=== PATIENT | female | born 1980 ===

== ENCOUNTER 2019-02-17 17:54 | Inpatient (IN) | payer OTHER ==
[2019-02-17 18:44] LABS: Hematocrit 39.2 % (30.3-42.9); Hemoglobin 13.2 gm/dl (10.1-14.3); Mean Corpuscular HGB Conc 34 % (30-34); Mean Corpuscular Volume 95 fl (79-97); Platelet Count 332 K/mm3 (140-440); Red Blood Count 4.12 M/mm3 (3.65-5.03); Red Cell Distribution Width 13.9 % (13.2-15.2)
[2019-02-17] MEDS ORDERED: TERBUTALINE 1 MG/1 ML INJ IVP PRN (19:10)
[2019-02-17] MEDS ORDERED: ePHEDrine SULFATE 50 MG/1 ML INJ IV PRN (19:10)
[2019-02-17] MEDS ORDERED: LIDOCAINE (2%) 20 MG/1 ML VIAL 20 ML MDV INFILTRATI ONE (19:10)
[2019-02-17] MEDS ORDERED: TERBUTALINE 1 MG/1 ML INJ SUB-Q PRN (19:10)
[2019-02-17] MEDS ORDERED: BUTORPHANOL 2 MG/1 ML INJ IV PRN (19:10)
[2019-02-17] MEDS ORDERED: MINERAL OIL 30 ML ORAL LIQD PO PRN (19:10)
--- NOTE | 2019-02-17 19:13 | History and Physical Report ---
History of Present Illness Date of examination: 02/17/19 Date of admission: 02/17/2019 Chief complaint: Leaking of fluid History of present illness: 38yo at 37+5/7 weeks by LNMP consistent with third trimester (YOGI 03/05/19)US presents with discharge on her pad this morning. She is a patient of [facility] and was seen in the clinic today. She was reported to have +ve pooling and +ve nitrazine. She was sent for direct admission for evaluation of possible SROM and possible delivery. She reports no contractions, no vaginal bleeding and good movement. On initial exam, patient had a completely dry peripad and no pooling. There was no amniotic fluid noted on my glove during her pelvic exam. There was a scant amount of blood noted on my glove after her cervical exam. 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 smear, chlamydia, gonorrhea, trichomonas Family/Genetic History: congenital heart defect Social history: - Obstetrical History Expected Date of Delivery: 03/05/19 Actual Gestation: 37 Week(s) 5 Day(s) : 2 Para: 1 Hx # Term Pregnancies: 1 Number of Living Children: 1 #1 Infant Gender: Female year: 2[age][birth year] Birthweight: 2.948 kg Method of Delivery: Gestational age at delivery: 40 Complications: hematoma Medications and Allergies Allergies Allergy/AdvReac Type Severity Reaction Status Date / Time No Known Allergies Allergy Unverified 02/17/19 18:28 Active Meds: Active Medications Ephedrine Sulfate (Ephedrine Sulfate) 10 mg IV Q2M PRN PRN Reason: Hypotension Oxytocin/Sodium Chloride (Pitocin/Ns 20 Unit/1000ml Drip) 20 units in 1,000 mls @ 125 mls/hr IV DIRECT CARLY Oxytocin/Sodium Chloride (Pitocin/Ns 30 Unit/500ml) 30 units in 500 mls @ 1 mls/hr IV TITR CARLY; Protocol Lidocaine (Xylocaine 2%) 20 ml INFILTRATI ONCE ONE Stop: 02/17/19 19:11 Mineral Oil (Mineral Oil) 30 ml PO QHS PRN PRN Reason: Constipation Terbutaline Sulfate (Brethine) 0.25 mg SUB-Q ONCE PRN PRN Reason: Hyperstimulation/Hypertonicity Terbutaline Sulfate (Brethine) 0.25 mg IVP ONCE PRN PRN Reason: Hyperstimulation/Hypertonicity Review of Systems All systems: negative - Vital Signs Vital signs: Vital Signs Temp 96.9 F L 02/17/19 18:15 Temp Pulse Resp BP Pulse Ox 96.9 F L 75 116/71 02/17/19 18:15 02/17/19 19:08 02/17/19 19:08 - Physical Exam Breasts: Positive: deferred Cardiovascular: Regular rate Lungs: Positive: Clear to auscultation Abdomen: Positive: normal appearance Genitourinary (Female): Positive: normal external genitalia Vulva: right: normal Vagina: Positive: normal moisture Uterus: Positive: normal size (FH37cm) Anus/Rectum: Positive: normal perianal skin Extremities: Positive: normal Deep Tendon Reflex Grade: Normal +2 - Obstetrical FHR: category 1 FHR comments: 150 baseline, moderate variability, +ve accelerations Uterine Contraction Monitor Mode: External Cervical Dilatation: 0 Cervical Effacement Percentage: 20 station: -2 Uterine Contraction Pattern: Irregular Results Result Diagrams: 02/17/19 18:19 All other labs normal. Assessment and Plan IUP at 37+5/7 weeks, not in labor Questionable SROM Previous c/sectionx1 AMA Daughter with a heart defect GBS negative Plan: Patient stable, not in labor status reassuring Plan for BPP/MARTHA nitrazine test in AM: possible false positive in office confirm SROM prior to elective c/section [place] [facility]
[2019-02-17] MEDS ORDERED: OXYTOCIN 20 UNIT/1000ML DRIP 20 UNITS/1,000 ML BAG IV SCH (20:00)
[2019-02-17] MEDS ORDERED: OXYTOCIN DRIP 30 UNITS/500 ML BAG IV SCH ×2 (20:00)
[2019-02-17] MEDS ORDERED: LACTATED RINGERS 1,000 ML ONE (22:41)
[2019-02-17] MEDS ORDERED: fentaNYL 100 MCG/2 ML INJ IV PRN (23:19)
[2019-02-18] MEDS ORDERED: BICITRA ORAL LIQD 30ML ONE (00:42)
[2019-02-18] MEDS ORDERED: FAMOTIDINE 20 MG/2 ML INJ IV ONE ×2 (00:43→01:00)
[2019-02-18] MEDS ORDERED: ceFAZolin/Water 2 GM/20 ML 2 GM/20 ML SYRINGE IV ONE ×2 (00:43→01:00)
[2019-02-18] MEDS ORDERED: METOCLOPRAMIDE 10 MG/2 ML INJ ONE (00:43)
--- NOTE | 2019-02-18 00:53 | Anesthesia Day of Surgery ---
Anesthesia Day of Surgery - Day of Surgery Patient Examined: Yes Patient H&P Reviewed: Yes Patient is NPO: No
--- NOTE | 2019-02-18 00:53 | Anesthesia Consultation ---
Anesthesia Consult and Med Hx Date of service: 02/18/19 - Airway Anesthetic Teeth Evaluation: Good ROM Head & Neck: Adequate Mental/Hyoid Distance: Adequate Mallampati Class: Class II Intubation Access Assessment: Good - Pulmonary Exam CTA: Yes - Pre-Operative Health Status ASA Pre-Surgery Classification: ASA2 Proposed Anesthetic Plan: Spinal - Pulmonary Hx Asthma: No COPD: No Hx Pneumonia: No - Endocrine Hx End Stage Renal Disease: No
[2019-02-18] MEDS ORDERED: METOCLOPRAMIDE 10 MG/2 ML INJ IV ONE (01:00)
[2019-02-18] MEDS ORDERED: BICITRA ORAL LIQD 30ML PO ONE (01:00)
--- NOTE | 2019-02-18 01:11 | Progress Note ---
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 FHT 140 baseline, moderate variability, +ve accelerations Plan for vaginal delivery Raul Zamora MD Objective - Vital Signs Vital Signs: Vital Signs - 12hr 02/17/19 02/17/19 02/17/19 18:15 18:23 19:08 Temperature 96.9 F L Pulse Rate 91 H 75 Blood Pressure 113/84 116/71 O2 Sat by Pulse Oximetry 02/17/19 02/17/19 02/18/19 19:10 23:30 00:00 Temperature 98.9 F 98.3 F Pulse Rate 74 Blood Pressure 121/75 O2 Sat by Pulse Oximetry 02/18/19 02/18/19 02/18/19 00:33 00:38 00:43 Temperature Pulse Rate 86 83 Blood Pressure O2 Sat by Pulse 99 98 98 Oximetry 02/18/19 02/18/19 02/18/19 00:48 00:53 00:58 Temperature Pulse Rate 86 106 H 102 H Blood Pressure O2 Sat by Pulse 98 99 98 Oximetry 02/18/19 01:03 Temperature Pulse Rate 89 Blood Pressure O2 Sat by Pulse 100 Oximetry - Labs Labs: Laboratory Results - last 24 hr 02/17/19 02/17/19 02/17/19 18:19 18:19 18:19 WBC 8.0 RBC 4.12 Hgb 13.2 Hct 39.2 MCV 95 MCH 32 MCHC 34 RDW 13.9 Plt Count 332 Syphilis IgG Antibody Non-reactive Blood Type O POSITIVE Antibody Screen Negative
--- NOTE | 2019-02-18 01:35 | Progress Note ---
Subjective - Subjective Date of service: 02/18/19 Principal diagnosis: SROM at 37+5/7 weeks Interval history: Patient declines to push verbalized desire for ERCS Consents signed and on chart Anesthesia notified to OR for c/section Maternal/ status reassuring at bedside Raul Zamora MD Objective - Vital Signs Vital Signs: Vital Signs - 12hr 02/17/19 02/17/19 02/17/19 18:15 18:23 19:08 Temperature 96.9 F L Pulse Rate 91 H 75 Blood Pressure 113/84 116/71 O2 Sat by Pulse Oximetry 02/17/19 02/17/19 02/18/19 19:10 23:30 00:00 Temperature 98.9 F 98.3 F Pulse Rate 74 Blood Pressure 121/75 O2 Sat by Pulse Oximetry 02/18/19 02/18/19 02/18/19 00:33 00:38 00:43 Temperature Pulse Rate 86 83 Blood Pressure O2 Sat by Pulse 99 98 98 Oximetry 02/18/19 02/18/19 02/18/19 00:48 00:53 00:58 Temperature Pulse Rate 86 106 H 102 H Blood Pressure O2 Sat by Pulse 98 99 98 Oximetry 02/18/19 02/18/19 02/18/19 01:03 01:08 01:13 Temperature Pulse Rate 89 90 91 H Blood Pressure O2 Sat by Pulse 100 96 95 Oximetry 02/18/19 02/18/19 02/18/19 01:18 01:20 01:23 Temperature Pulse Rate 106 H 86 107 H Blood Pressure O2 Sat by Pulse 97 94 95 Oximetry 02/18/19 01:28 Temperature Pulse Rate 94 H Blood Pressure O2 Sat by Pulse 96 Oximetry - Labs Labs: Laboratory Results - last 24 hr 02/17/19 02/17/19 02/17/19 18:19 18:19 18:19 WBC 8.0 RBC 4.12 Hgb 13.2 Hct 39.2 MCV 95 MCH 32 MCHC 34 RDW 13.9 Plt Count 332 Syphilis IgG Antibody Non-reactive Blood Type O POSITIVE Antibody Screen Negative
[2019-02-18] MEDS ORDERED: DEXMEDETOMIDINE 200 MCG/2 ML VIAL IV ONE (01:37)
[2019-02-18] MEDS ORDERED: ONDANSETRON 4 MG/2 ML INJ ONE (01:38)
[2019-02-18] MEDS ORDERED: ePHEDrine SULFATE 50 MG/1 ML INJ ONE (02:30)
[2019-02-18] MEDS ORDERED: HETASTARCH 6% 500 ML IV ONE (02:39)
[2019-02-18] MEDS ORDERED: MIDAZOLAM 2 MG/2 ML INJ ONE (02:41)
[2019-02-18] MEDS ORDERED: PHENYLEPHRINE/NS 1,000 MCG/10 ML SYRINGE (OR USE) IV ONE (02:41)
[2019-02-18] MEDS ORDERED: HYDROmorphone 1 MG/1 ML INJ ONE (02:43)
[2019-02-18] MEDS ORDERED: OXYTOCIN 10 UNIT/1 ML INJ ONE (03:41)
[2019-02-18] MEDS ORDERED: MAGNESIUM HYDROXIDE (MOM) ORAL LIQD UDC PO PRN (04:40)
[2019-02-18] MEDS ORDERED: PROMETHAZINE 25 MG RECT SUPP PR PRN (04:40)
[2019-02-18] MEDS ORDERED: SIMETHICONE 80 MG CHEW TAB PO PRN (04:40)
[2019-02-18] MEDS ORDERED: WITCH HAZEL/ GLYCERIN PAD TP PRN (04:40)
[2019-02-18] MEDS ORDERED: LANOLIN/ZINC/DIMETHICONE (LANSINOH) 7 GM TP PRN (04:40)
[2019-02-18] MEDS ORDERED: NALOXONE 0.4 MG/1 ML INJ IV PRN (04:40)
[2019-02-18] MEDS ORDERED: ACETAMINOPHEN 650 MG RECT SUPP PR PRN (04:40)
[2019-02-18] MEDS ORDERED: ONDANSETRON 4 MG/2 ML INJ IV PRN (04:40)
[2019-02-18] MEDS ORDERED: MORPHINE 4 MG/1 ML INJ IV PRN (04:40)
[2019-02-18] MEDS ORDERED: OXYTOCIN 20 UNIT/1000ML DRIP 20 UNITS/1,000 ML BAG IV SCH (05:00)
[2019-02-18] MEDS ORDERED: SODIUM CHLORIDE 0.9% 1000 ML 1,000 ML ONE (05:03)
--- NOTE | 2019-02-18 06:15 | Procedure Note ---
OB Delivery Note - Delivery Date of Delivery: 02/18/19 Surgeon: SILVINO ESPINAL Estimated blood loss: other (1500ml) - Section Preop diagnosis: repeat Postop diagnosis: other (Repeat low transverse section via pfannenstiel incision, Incidental cystotomy, acute blood loss~1500ml) section procedure: repeat low transverse, other (repair of incidental cystotomy) Disposition: PACU Complications: bladder injury, transfusion Narrative: Preoperative diagnosis: IUP at 37+5/7 weeks,SROM,Previous Sectionx1 declines TOLAC Postoperative diagnosis: Same, incidental cystotomy, Pelvic adhesions, acute blood loss Procedure: Repeat Low Transverse section via Pfannenstiel incision, Repair of incidental cystotomy Surgeon: Dr Silvino Espinal Assist: Scrub Anesthesia: Spinal Findings: viable female, 8,9; weight 3044gms Normal uterus, tubes and ovaries bilaterally. ~3cm right cystotomy noted at the dome of the bladder Complications: Incidental Cystotomy, Pelvic Adhesions, no response from Intraoperative Urology consult Drains: Noe to gravity EBL: 1500mL IV Fluids: 2500ml, 2 units PRBC's Urine Output: intraoperative cystotomy with no urine output until repair completed Procedure: Patient noted to be complete and zero station. She declines to push and asked for a section. Patient gave informed consent in OB room 2009. All questions and concerns addressed. R/B/C reviewed. She was taken to the OR where excellent spinal anesthesia was given. She was placed in the dorsal supine position with a leftward tilt. She was prepped and draped in a sterile fashion. A time out was verified. An Dolores clamp was used to assure adequate analgesia. A Pfannenstiel skin incision was made, taken down through the underlying fascia sharply and extended laterally with curved Muse scissors. The superior and inferior aspect of the fascial incision was grasped with Boo clamps and the rectus muscles dissected off sharply. The abdomen was entered sharply in the midline and extended laterally and inferiorly sharply with good visualization of the underlying structures. Pelvic adhesions were noted and taken down sharply. The vesicouterine peritoneum was noted to be adherent to the fundal portion of the uterus and was taken down sharply with Metzenbaum scissors. A bladder blade was inserted. The uterine incision was made sharply with a scalpel, taken down to the amnion and extended inferiorly and superiorly bluntly. The bladder blade removed. Baby delivered atraumatically in cephalic presentation, loose nuchal cord reduced at delivery. Spontaneous cry at delivery.The cord was clamped and cut and baby handed to waiting NICU staff. An intact placenta with three vessel cord delivered manually. The uterus cleared of all clots and debris. The uterus was exteriorized and the uterine incision closed with 3 layers of 0-Vicryl. At this time there was lisa blood noted in the noe. The bladder was backfilled with 60cc sterile milk infused into the noe and a ~3cm right cystotomy noted on the right lateral aspect at the dome of the bladder. Urology was paged with no response. Visualizing clear margins the incidental cystotomy was repaired in two layers with 3-0 silk. The first layer of repair was a sunning layer of 3-0 silk, the second layer an imbricating layer of 3-0 silk. At the completion of the procedure the integrity of the cystotomy was noted to be adequate with 60cc infusion of sterile milk into the bladder through the noe catheter with no intraperitoneal spill or leaking noted. Due to the extensive repair and revision to the uterus and bladder there was extensive intraoperative bleeding noted and two units PRBC's were called for STAT. Patient remained hemodynamically stable throughout the procedure. The abdomen was irrigated with warm normal saline and the uterus placed back in the abdomen. A second look at the uterine incision assured excellent hemostasis. A procoagulant was placed on the uterine incision. The peritoneum closed with 3- 0 vicryl. The rectus muscles approximated with 3-0 vicryl with good hemostasis. The fascia closed with 0-Vicryl in the usual fashion, and the underlying structures closed with interrupted suture of O-Vicryl. The skin closed with angela and a pressure dressing applied. Mom and baby stable to . Patient transfused two units PRBC's in PACU. Plan for serial H/H Q6 hours post-transfusion. Patient notified in PACU of acute blood loss and inci dental cystotomy with the Outboard Motor Tester line. We discussed plan of care to continue noe for at least 7 days. Plan for urology consult. She was notified of acute blood loss and need for transfusion. She acknowledges understanding. Patient hemodynamically stable in PACU. 100ml urine output noted in the noe in PACU. EBL 1500ml. All sponge and needle counts correctx3. [place] [facility] - Infant A at 1 minute: 8 at 5 minutes: 9 Infant Gender: Female (3044gms)
[2019-02-18] MEDS ORDERED: FUROSEMIDE 20 MG/2 ML INJ IV ONE (06:53)
[2019-02-18 06:55] LABS: Hematocrit 29.5 % (30.3-42.9); Hemoglobin 10.1 gm/dl (10.1-14.3); Mean Corpuscular HGB Conc 34 % (30-34); Mean Corpuscular Volume 94 fl (79-97); Platelet Count 191 K/mm3 (140-440); Red Blood Count 3.15 M/mm3 (3.65-5.03); Red Cell Distribution Width 14.4 % (13.2-15.2)
[2019-02-18] MEDS: MORPHINE 2 MG/1 ML INJ IV PRN ×2 (08:09→15:16)
[2019-02-18] MEDS: LACTATED RINGERS 1,000 ML IV SCH ×2 (08:17→19:26)
--- NOTE | 2019-02-18 09:53 | Post Anesthesia Evaluation ---
- Post Anesthesia Evaluation Patient Participated: Yes Airway Patent: Yes Stable Respiratory Function: Yes Nausea/Vomiting: No Temp > 96.8F: Yes Pain Manageable: Yes Adequeate Hydration: Yes (1500 EBL, PRBC started in OR.) Anesthesia Complications: No Block Receding Appropriately: Yes Patient on Ventilator: No
[2019-02-18] MEDS: oxyCODONE /ACETAMINOPHEN 5-325MG TAB PO PRN ×2 (10:10→20:48)
[2019-02-18 13:09] LABS: Hematocrit 28.7 % (30.3-42.9); Hemoglobin 9.8 gm/dl (10.1-14.3)
[2019-02-18] MEDS ORDERED: KETOROLAC 30 MG/1 ML INJ ONE (15:00)
[2019-02-18 19:08] LABS: Hemoglobin 9.4 gm/dl (10.1-14.3)
[2019-02-19] MEDS: IBUPROFEN 800 MG TAB PO PRN ×2 (00:12→09:37)
[2019-02-19 03:13] LABS: Hematocrit 27.5 % (30.3-42.9); Hemoglobin 9.4 gm/dl (10.1-14.3)
[2019-02-19] MEDS: oxyCODONE /ACETAMINOPHEN 5-325MG TAB PO PRN ×3 (06:26→23:59)
--- NOTE | 2019-02-19 08:00 | Progress Note ---
Assessment and Plan POD#1: repeat c/section with incidental cystotomy, acute blood loss anemia sp transfusion 2 units RBCs doing well adequate urine output, awaiting urology consult CMP pending H/H stable advance diet to regular Encourage ambulation Maternal well being stable at bedside Raul Zamora MD Subjective - Subjective Date of service: 02/19/19 Principal diagnosis: SROM at 37+5/7 weeks Interval history: POD#1 Patient sitting up, baby in room, breast-feeding doing well, no complaints tolerating liquid diet +ve noe in place: ~20ml blood tinged urine in noe bag Objective - Vital Signs Vital Signs: Vital Signs - 12hr 02/18/19 02/18/19 02/19/19 20:42 20:48 00:12 Temperature 98.5 F Pulse Rate 84 Respiratory 20 20 20 Rate Blood Pressure 112/80 Blood Pressure [Right] O2 Sat by Pulse 96 Oximetry 02/19/19 02/19/19 01:38 06:26 Temperature 98.3 F Pulse Rate 80 Respiratory 20 20 Rate Blood Pressure Blood Pressure 106/68 [Right] O2 Sat by Pulse Oximetry - Exam Breasts: deferred Cardiovascular: Regular rate Lungs: Clear to auscultation Abdomen: Present: normal appearance, soft, normal bowel sounds, other (wound pressure dressing in placce: dry) Uterus: Present: firm, fundal height below umbilicus Deep Tendon Reflex Grade: Normal +2 - Labs Labs: Abnormal Labs 02/17/19 02/18/19 02/18/19 18:19 06:43 12:28 RBC 3.15 L Hgb 9.8 L Hct 29.5 L D 28.7 L Crossmatch See Detail 02/18/19 02/19/19 18:46 02:01 RBC Hgb 9.4 L 9.4 L Hct 26.0 L 27.5 L Crossmatch Laboratory Results - last 24 hr 02/18/19 02/18/19 02/19/19 12:28 18:46 02:01 Hgb 9.8 L 9.4 L 9.4 L Hct 28.7 L 26.0 L 27.5 L
[2019-02-19 09:37] LABS: Alanine Aminotransferase 14 units/L (7-56); Albumin 2.2 g/dL (3.9-5); BUN/Creatinine Ratio 13; Blood Urea Nitrogen 5 mg/dL (7-17); Calcium 8.1 mg/dL (8.4-10.2); Hemolysis Index 5
[2019-02-20] MEDS: IBUPROFEN 800 MG TAB PO PRN ×2 (05:30→18:39)
--- NOTE | 2019-02-20 10:39 | Progress Note ---
Assessment and Plan - Patient Problems (1) S/P repeat low transverse Current Visit: Yes Status: Acute Plan to address problem: POD #2 - stable Continue routine postop orders Discharge to home 02/21/19 Follow-up at [facility] as needed or in 1 week for angela removal (2) Cystostomy status Current Visit: Yes Status: Acute Plan to address problem: Accidental cystostomy during surgery Baker catheter discontinued Patient voiding adequately, per RN (3) Anemia due to blood loss, acute Current Visit: Yes Status: Acute Plan to address problem: Asymptomatic s/p blood transfusion Iron therapy initiated Subjective - Subjective Date of service: 02/20/19 Principal diagnosis: POD #2; s/p Repeat LTCS Interval history: see H&P, OB Progress Notes and OB Delivery Procedure Note Patient reports: appetite normal, voiding normally, pain well controlled, flatus, ambulating normally, no dizzy ambulation, no bowel movement [place]: doing well Objective - Vital Signs Latest vital signs: Vital Signs Temp Pulse Resp BP BP Pulse Ox 02/20/19 08:26 98.0 F 83 16 101/70 94 02/20/19 05:30 20 02/20/19 00:23 98.5 F 89 18 104/72 98 02/19/19 23:59 18 02/19/19 16:58 98.4 F 89 18 117/80 Intake and Output 02/19/19 02/20/19 02/20/19 23:59 07:59 15:59 Intake Total 720 240 240 Output Total 600 Balance 720 -360 240 Intake: Oral 720 240 240 Output: Urine 600 Void 600 Other: Total, Intake Amount 240 240 240 Total, Output Amount 600 # Voids Void 1 1 1 - Exam Cardiovascular: Present: Regular rate Lungs: Present: Clear to auscultation Abdomen: Present: normal appearance, soft Vulva: both: normal Uterus: Present: normal, firm, fundal height below umbilicus Extremities: Present: normal Incision: Present: normal, dry, intact, other (angela in place) Comments: scant lochia - Labs Labs: Abnormal lab results 02/17/19 Range/Units 18:19 Crossmatch See Detail
--- NOTE | 2019-02-20 10:50 | Discharge Summary ---
Providers - Providers Date of Admission: 02/18/19 02:25 Date of discharge: 02/21/19 Attending physician: SILVINO ESPINAL MD Primary care physician: SILVINO ESPINAL MD Hospitalization Reason for admission: active labor, section, IUP at term Delivery: Procedure: repeat low transverse Procedure details: Accidental Cystotomy during surgery Episiotomy: none Laceration: none Incision: normal, dry, intact, other (angela in place) Other procedures: none complications: none Discharge diagnosis: IUP at term delivered baby: female Condition at discharge: Stable Disposition: [place]- TO HOME OR SELFCARE - Discharge Diagnoses (1) S/P repeat low transverse Status: Acute (2) Cystostomy status Status: Resolved (3) Anemia due to blood loss, acute Status: Acute Comment: Asymptomatic Continue iron therapy Eat iron-rich foods Plan - Discharge Medications Prescriptions: Ferrous Sulfate [Feosol 325 MG tab] 325 mg PO BID #60 tablet Ibuprofen [Motrin] 600 mg PO Q8H PRN #30 tablet PRN Reason: Pain oxyCODONE /ACETAMINOPHEN [Percocet 5/325] 1 tab PO Q6HR PRN #20 tablet PRN Reason: Pain - Provider Discharge Summary Activity: routine, no sex for 6 weeks, no heavy lifting 4 weeks Diet: routine Instructions: routine Additional instructions: [] Smoking cessation referral if applicable(refer to patient education folder for contact #) [] Refer to [facility]'s [facility] Booklet Call your doctor immediately for: * Fever > 100.5 * Heavy vaginal bleeding ( >1 pad per hour) * Severe persistent headache * Shortness of breath * Reddened, hot, painful area to leg or breast * Drainage or odor from incision. * Keep incision clean and dry at all times and follow doctor's instructions regarding bathing/showering - Follow up plan Follow up: SILVINO ESPINAL MD [Primary Care Provider] - 7 Days (Follow up at [facility] as needed or in 1 week for incision check and angela removal)
--- NOTE | 2019-02-20 17:23 | Cat Scan Report ---
CT ABDOMEN AND PELVIS WITH CONTRAST HISTORY: MAIN: 100ML OMNI 300 Nicked bladder C/S. Look for leaks and obstruction. COMPARISON: None. TECHNIQUE: CT images of the abdomen and pelvis were obtained following administration of intravenous contrast. All CT scans at this location are performed using CT dose reduction for ALARA by means of automated exposure control. CONTRAST: 100 ml of intravenous contrast administered. FINDINGS: Lungs/bones: There is mild bibasilar atelectasis. No acute osseous abnormality identified. Abdomen/pelvis: The liver, gallbladder, spleen, pancreas, adrenals, kidneys, and proximal GI tract a ppear unremarkable on this motion limited exam. There is a post gravid uterus with enlargement and heterogeneous appearance. Heterogeneity along the uterus is presumably related to the and there are low pelvic skin angela in place. The uri nary bladder is unremarkable with no contrast leak on the delayed phase series. There is a small focu s of gas nondependently which is likely related to previous instrumentation. Otherwise, there is stranding and trace fluid in the deep pelvis which is presumably postoperative. N o acute colonic abnormality identified. IMPRESSION: 1. No evidence of a bladder leak. 2. Postgravid uterus and postoperative findings in the pelvis. Signer Name: Audie Plascencia MD Signed: 02/20/2019 5:19 PM Workstation Name: [id number]
[2019-02-20] MEDS: FERROUS SULFATE 325 MG TAB PO SCH ×2 (18:39→23:02)
[2019-02-21] MEDS: oxyCODONE /ACETAMINOPHEN 5-325MG TAB PO PRN (00:19)
[2019-02-21] MEDS: IBUPROFEN 800 MG TAB PO PRN (05:43)
[2019-02-21] MEDS: FERROUS SULFATE 325 MG TAB PO SCH (09:49)
[2019-02-21 13:29] VITALS: BP 113/74
== END 2019-02-21 13:25 | disposition home or self-care (01) | DRG 787 ==
LOC: TRG 17:54 → LD 17:55 → TRG 02-18 02:25 → LD 02-18 02:25 → APU 02-18 03:21 → OB 02-18 09:42
PROVIDERS: ADMIT Obstetrics & Gynecology; ATTEND Obstetrics & Gynecology
PROC: 10D00Z1 Extraction of Products of Conception, Low, Open Approach (ICD-10-PCS; principal; 2019-02-18)
PROC: 0TQB0ZZ Repair Bladder, Open Approach (ICD-10-PCS; 2019-02-18)
PROC: 30233N1 Transfusion of Nonautologous Red Blood Cells into Peripheral Vein, Percutaneous Approach (ICD-10-PCS; 2019-02-18)
DX: O69.81X0 Labor and delivery complicated by cord around neck, without compression, not applicable or unspecified (principal); D62 Acute posthemorrhagic anemia; O71.5 Other obstetric injury to pelvic organs; O34.211 Maternal care for low transverse scar from previous cesarean delivery; Z3A.37 37 weeks gestation of pregnancy; Z37.0 Single live birth; O90.81 Anemia of the puerperium; O75.5 Delayed delivery after artificial rupture of membranes
CPT/HCPCS: 36415; 36430; 74178; 80053; 85014; 85018; 85027; 86592; 86850; 86900; 86901; 86920; 88307; G0378; J0690; J1170; J1885; J2250; J2270; J2370; J2405; J2590; J2765; J3010; J3490; J7030; J7120; P9016; Q9967